=== PATIENT | female | born 1990 | race Caucasian/White ===

== ENCOUNTER 2016-10-28 17:13 | Emergency (ER) | payer MEDICAID, OTHER ==
[~2016-10-28] VITALS: Ht 167.6 cm; Wt 61.0 kg
[2016-10-28 17:16] VITALS: Ht 167.6 cm; Wt 61.0 kg
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
[2016-10-28] MEDS ORDERED: HYDR-906 PO (20:42)
[2016-10-28] MEDS ORDERED: CYCL-319 PO (20:42)
[2016-10-28] MEDS ORDERED: IBUP-1542 PO (20:43)
[2016-10-28 21:02] VITALS: BP 109/69; PULSE 75; RESP 20; TEMP 98.6
== END 2016-10-28 21:04 | disposition home or self-care (01) ==
LOC: FTE 17:13
DX: S16.1XXA Strain of muscle, fascia and tendon at neck level, initial encounter (principal); S50.01XA Contusion of right elbow, initial encounter; V49.40XA Driver injured in collision with unspecified motor vehicles in traffic accident, initial encounter
CPT/HCPCS: 72125; 73080; Z7502